=== PATIENT | male | born 1975 | race Caucasian/White ===

== ENCOUNTER 2016-02-27 10:50 | Emergency (ER) | payer SELFPAY ==
[2016-02-27] MEDS ORDERED: ONDANSETRON HCL IV 4 MG/2 ML VIAL IVP ONE (11:26)
[2016-02-27] MEDS ORDERED: MECLIZINE 25 MG TABLET PO ONE (11:26)
[2016-02-27] MEDS ORDERED: 0.9 % SODIUM CHLORIDE 1,000 ML BAG IV ONE (11:26)
--- NOTE | 2016-02-27 11:33 | Emergency Department Record ---
History of Present Illness - General Chief Complaint: Dizziness Stated Complaint: DIZZINESS Time Seen by Provider: 02/27/16 11:21 Source: Patient, Family Mode of Arrival: Ambulatory Limitations: No limitations - History of Present Illness Initial Comments: 40 yo male presents with dizziness and room spinning. The onset was about 7pm yesterday evening. He was sitting watching TV and turned his head and developed room spinning sensation. It improves if still but returns with movement or activity. No cough, cold, fever or recent symptoms. No vision changes or hearing changes. He finds it hard to focus when the room is spinning. No vomiting but he feels nauseated. No trauma. No history of the same. MD Complaint: Dizziness Onset/Timin -: Hour(s) Timing: Gradual onset Description: Lightheadedness, Nausea, Other History of Same: No History of Trauma: No Severity: Mild Improves With: Nothing Worsens With: Nothing Associated Symptoms: Malaise, Weakness - Nathaniel Coma Scale Eye Response: (4) Open spontaneously Motor Response: (6) Obeys commands Verbal Response: (5) Oriented [place] Total: 15 - Symptoms of Stroke Symptoms of stroke: Dizziness - Related Data Previous Rx's Medication Instructions Recorded Meclizine HCl [Antivert] 25 mg PO Q8H #20 tablet 02/27/16 Ondansetron [Zofran Odt] 4 mg PO Q8H #20 tab.rapdis 02/27/16 Promethazine HCl [Phenergan] 12.5 mg PO Q6H PRN #20 tablet 02/27/16 Allergies Allergy/AdvReac Type Severity Reaction Status Date / Time No Known Drug Allergies Allergy Verified 02/27/16 11:08 Travel Screening - Travel/Exposure Within Last 30 Days Have you traveled within the last 30 days?: No Review of Systems Constitutional: Denies: Chills, Fever, Malaise, Night sweats, Weakness Eyes: Denies: Eye discharge, Eye pain, Photophobia, Vision change ENT: Denies: Congestion, Ear pain, Throat pain Respiratory: Denies: Cough, Dyspnea, Hemoptysis, Stridor, Wheezes Cardiovascular: Denies: Chest pain, Palpitations, Syncope Endocrine: Denies: Fatigue Gastrointestinal: Reports: Nausea. Denies: Abdominal pain, Diarrhea, Vomiting Genitourinary: Denies: Hematuria, Urgency Musculoskeletal: Denies: Arthralgia, Back pain, Joint swelling, Myalgia, Neck pain Skin: Denies: Change in color, Rash Neurological: Reports: Abnormal gait (feels off balance walking), Vertigo. Denies: Headache, Numbness, Paresthesias, Seizure, Tingling, Tremors, Weakness Psychiatric: Reports: As per HPI. Denies: Anxiety, Auditory hallucinations, Depression, Homicidal thoughts, Suicidal thoughts, Visual hallucinations Hematological/Lymphatic: Reports: As per HPI. Denies: Anemia, Blood Clots, Easy bleeding, Easy bruising, Swollen glands Past Medical History - SOCIAL HISTORY Smoking Status: Current every day smoker Alcohol Use: None Drug Use: None - RESPIRATORY Hx Respiratory Disorders: No - CARDIOVASCULAR Hx Cardio Disorders: No - NEURO Hx Neuro Disorders: No - GI Hx GI Disorders: No - Hx Genitourinary Disorders: No - ENDOCRINE Hx Endocrine Disorders: No - MUSCULOSKELETAL Hx Musculoskeletal Disorders: No - PSYCH Hx Psych Problems: No - HEMATOLOGY/ONCOLOGY Hx Hematology/Oncology Disorders: No Family Medical History Any Significant Family History?: No Family Hx Comment (NOT TO BE USED IN PLACE OF ITEMS BELOW): unsure-pt was adopted Physical Exam - General General Appearance: Alert, Oriented x3, Cooperative, No acute distress Limitations: No limitations - Head Head exam: Atraumatic, Normocephalic, Normal inspection - Eye Eye exam: Normal appearance, PERRL, EOMI, Nystagmus (Noted with rightward gaze, none vertical, none leftward gaze). negative: Conjunctival injection, Periorbital swelling, Scleral icterus - ENT ENT exam: Normal exam, Mucous membranes moist, Normal external ear exam, Normal orophraynx, TM's normal bilaterally Ear exam: Normal external inspection. negative: External canal tenderness Nasal Exam: Normal inspection. negative: Discharge, Sinus tenderness Mouth exam: Normal external inspection, Tongue normal Teeth exam: Normal inspection. negative: Dental caries Throat exam: Normal inspection. negative: Tonsillar erythema, Tonsillar exudate - Neck Neck exam: Normal inspection, Full ROM. negative: Lymphadenopathy, Tenderness - Respiratory Respiratory exam: Normal lung sounds bilaterally. negative: Respiratory distress - Cardiovascular Cardiovascular Exam: Regular rate, Normal rhythm, Normal heart sounds Peripheral Pulses: 2+: Radial (R), Radial (L) - GI/Abdominal GI/Abdominal exam: Soft. negative: Guarding, Rebound, Rigid, Tenderness - Rectal Rectal exam: Deferred - exam: Deferred - Extremities Extremities exam: Normal inspection, Full ROM, Normal capillary refill. negative: Tenderness - Back Back exam: Reports: Normal inspection, Full ROM. Denies: Muscle spasm, Rash noted, Tenderness - Neurological Neurological exam: Alert, CN II-XII intact, Normal gait, Oriented X3, Reflexes normal, Other (No PND, normal ARIA, normal FTN). negative: Motor sensory deficit - Psychiatric Psychiatric exam: Normal affect, Normal mood - Skin Skin exam: Dry, Intact, Normal color, Warm Course Vital Signs 02/27/16 11:00 Temperature 97.6 F Pulse Rate 62 Respiratory 20 Rate Blood Pressure 119/82 Pulse Ox 99 - Reevaluation(s) Reevaluation #1: EKG 1126 NSR rate 53, intervals normal, axis normal, ST normal 02/27/16 11:33 Reevaluation #2: The labs were reviewed. No acute changes 02/27/16 12:20 Reevaluation #3: On recheck the patient is much improved. The nausea and spinning are resolved and he is hungry The CT scan was reviewed. He has a right sided arachnoid cyst. I ANGEL Lassiter of [facility]. He recommends his PCP get MRI and refer to him for follow up I ANGEL Constantino of the [facility] to ensure close follow up for a PCP 02/27/16 13:22 02/27/16 18:23 Reevaluation #4: At the time of discharge the patient has no dizziness, no headache, no vision changes. He ambulates freely around the ED without symptoms. We again discussed reasons to return to the ED immediately. Otherwise he will be called by the [facility] to assist in completing the outpatient work up 02/27/16 Medical Decision Making - Lab Data Result diagrams: 02/27/16 11:15 02/27/16 11:15 Disposition Disposition: Discharge Clinical Impression: Vertigo, Arachnoid cyst Disposition: Home, Self-Care Condition: (1) Good Instructions: Vertigo (ED) Additional Instructions: Return immediately if you have any return of dizziness or room spinning or any new concerns such as headaches, vision changes, weakness Call the Clinic tomorrow to schedule an appointment for close follow up You will need an outpatient MRI and refer for outpatient follow up with Neurosurgery at [facility] with Dr Lassiter Prescriptions: Meclizine HCl [Antivert] 25 mg PO Q8H #20 tablet Promethazine HCl [Phenergan] 12.5 mg PO Q6H PRN #20 tablet PRN Reason: Nausea Ondansetron [Zofran Odt] 4 mg PO Q8H #20 tab.samueldis Referrals: SUKHDEV LASSITER [] - NIRU GREER M.D. [MEDICAL DOCTOR] - Forms: Patient Portal Access Time of Disposition: 13:29
[2016-02-27 11:35] LABS: EOS % 0.6 % (0-6); GRAN % 72.9 % (47-80); HEMATOCRIT 37.2 % (42.0-52.0); HEMOGLOBIN 13.2 gm/dl (14.0-18.0); LYMPH % 20.4 % (16-45); MEAN CELL VOLUME 85.9 fl (81-97); MEAN CORPUSCULAR HGB CONC 35.5 g/dl (32-36); MEAN PLATELET VOLUME 9.2 fl (7.4-10.4); MONO % 6.1 % (0-9); PLATELET COUNT 202 K/uL (130-400); RED BLOOD COUNT 4.33 M/uL (4.40-5.70); RED CELL DISTRIBUTION WIDTH 13.1 % (11.5-14.5); WHITE BLOOD COUNT W/O DIFF 5.1 K/uL (4.2-12.2)
[2016-02-27 11:37] LABS: MEAN CORPUSCULAR HEMOGLOBIN 30.4 pg (27-33)
[2016-02-27 11:50] LABS: ALB/GLOB RATIO 1.7 (1.1-1.8); ALBUMIN 4.5 gm/dL (3.5-5.0); ALKALINE PHOSPHATASE 49 U/L (38-126); ALT/SGPT 31 U/L (21-72); ANION GAP 8.9 (7-16); AST/SGOT 16 U/L (17-59); BILIRUBIN,TOTAL 0.55 mg/dL (0.2-1.3); BLOOD UREA NITROGEN 10 mg/dL (9-20); CARBON DIOXIDE 26.1 mmol/L (22-30); CREATININE 0.7 mg/dL (0.66-1.25); EST GLOMERULAR FILTRATION RATE > 60 ml/min; GLUCOSE,RANDOM 95 mg/dL (70-110); TOTAL PROTEIN 7.1 gm/dL (6.3-8.2)
[2016-02-27 11:57] LABS: URINE APPEARANCE CLEAR; URINE BILIRUBIN NEGATIVE (NEGATIVE); URINE BLOOD NEGATIVE (NEGATIVE); URINE COLOR YELLOW; URINE GLUCOSE (UA) NEGATIVE (NEGATIVE); URINE KETONE NEGATIVE (NEGATIVE); URINE LEUKOCYTE ESTERASE NEGATIVE (NEGATIVE); URINE NITRITE NEGATIVE (NEGATIVE); URINE PROTEIN NEGATIVE (NEGATIVE); URINE UROBILINOGEN 0.2 E.U./dL (0.20 - 1.00)
[2016-02-27] MEDS ORDERED: ACETAMINOPHEN 325 MG TAB PO ONE (13:36)
--- NOTE | 2016-03-01 15:31 | CT SCAN REPORT ---
DATE: 02/27/2016. EXAM: HEAD CT. HISTORY: Headache and dizziness. TECHNIQUE: Non-contrast head CT was performed. COMPARISON: None. FINDINGS: There is a prominent cerebrospinal fluid space in the anterior right middle cranial fossa. This measures approximately 3.5 x 2.4 cm in size, probably representing an arachnoid cyst. The ventricles and subarachnoid spaces otherwise are unremarkable. There is no other mass or mass effect. No intra- or extra-axial hemorrhage is seen. No fracture or acute osseus abnormality identified. The visualized sinuses are clear. No CT evidence for large acute territorial infarct. IMPRESSION: 1. ARACHNOID CYST IN THE ANTERIOR RIGHT MIDDLE CRANIAL FOSSA. 2. HEAD CT IS OTHERWISE UNREMARKABLE WITH NO MASS, HEMORRHAGE, OR ACUTE INTRACRANIAL PROCESS. JOB NUMBER: [id number] MTDD
== END 2016-02-27 14:15 | disposition home or self-care (01) ==
LOC: ER 10:50
DX: G93.0 Cerebral cysts (principal); R42 Dizziness and giddiness; R11.0 Nausea; R51 Headache
CPT/HCPCS: 85025; 80053; 81003; 70450; 93005; 93010; J2405; 96361; 96374; 99284; J7030

== ENCOUNTER 2016-03-18 04:27 | Emergency (ER) | payer SELFPAY ==
--- NOTE | 2016-03-18 04:50 | Emergency Department Record ---
History of Present Illness - General Chief Complaint: Headache Migraine Stated Complaint: HEADACHE/PMH OF CYST ON BRAIN Time Seen by Provider: 03/18/16 04:44 Source: Patient, Family Mode of Arrival: Ambulatory Limitations: No limitations - History of Present Illness Initial Comments: 40 yo male presents to ED with a CC of a worsening headache and dizziness for the past 2.5 weeks since being seen in ED 02/27/16 when brain imaging revealed a large arachnoid cyst within the brain tissue. Patient reports that he underwent MRI imaging on 03/03/16 that further described the brain lesion. Patient reports that his headache symptoms have only worsened since being seen on 02/27/16, and patient has not been able to follow-up with a neurosurgeon since that time. Patient has been taking antivert and phenergan for his vertigo/ nausea symptoms and T#3 for his headache symptoms without improvement. Patient denies fevers, chills, or recent illness symptoms. Patient denies health problems at his baseline. MD Complaint: Headache Onset/Timin -: Week(s) Onset Description: Gradual Location: Frontal Severity: Severe Severity scale (1-10): >10 Quality: Other Consistency: Constant Improves With: Nothing Worsens With: Light, Noise Context: Other Associated Symptoms: Other Other Symptoms: Other Treatments Prior to Arrival: Prescription analgesic - Related Data Home Medications Medication Instructions Recorded Confirmed Last Taken Promethazine HCl [Phenergan] 12.5 mg PO ASDIR 03/18/16 03/18/16 Unknown Previous Rx's Medication Instructions Recorded Meclizine HCl [Antivert] 25 mg PO Q8H #20 tablet 02/27/16 Allergies Allergy/AdvReac Type Severity Reaction Status Date / Time No Known Drug Allergies Allergy Verified 02/27/16 11:08 Travel Screening - Travel/Exposure Within Last 30 Days Have you traveled within the last 30 days?: No - Travel/Exposure Within Last Year Have you traveled outside the [place] in the last year?: No - Additonal Travel Details Have you been exposed to anyone with a communicable illness?: No - Travel Symptoms Symptom Screening: None Review of Systems Constitutional: Denies: Chills, Fever, Malaise, Night sweats Eyes: Denies: Eye discharge, Eye pain ENT: Denies: Congestion, Ear pain Respiratory: Denies: Cough, Dyspnea Cardiovascular: Denies: Chest pain, Dyspnea on exertion Endocrine: Denies: Fatigue, Heat or cold intolerance Gastrointestinal: Denies: Abdominal pain, Nausea, Vomiting Genitourinary: Denies: Incontinence, Retention Musculoskeletal: Denies: Arthralgia, Back pain, Gout, Joint swelling Skin: Denies: Bruising, Change in color Neurological: Reports: Headache. Denies: Abnormal gait, Confusion, Seizure Psychiatric: Denies: Anxiety Hematological/Lymphatic: Denies: Anemia, Blood Clots Past Medical History - SOCIAL HISTORY Smoking Status: Current every day smoker Alcohol Use: None Drug Use: None - RESPIRATORY Hx Respiratory Disorders: No - CARDIOVASCULAR Hx Cardio Disorders: No - NEURO Hx Neuro Disorders: No - GI Hx GI Disorders: No - Hx Genitourinary Disorders: No - ENDOCRINE Hx Endocrine Disorders: No - MUSCULOSKELETAL Hx Musculoskeletal Disorders: No - PSYCH Hx Psych Problems: No - HEMATOLOGY/ONCOLOGY Hx Hematology/Oncology Disorders: No Family Medical History Any Significant Family History?: No Family Hx Comment (NOT TO BE USED IN PLACE OF ITEMS BELOW): unsure-pt was adopted Physical Exam - General General Appearance: Alert, Oriented x3, Cooperative, Moderate distress (patient appears to be in moderate to severe pain on examination) Limitations: No limitations - Head Head exam: Atraumatic, Normocephalic, Normal inspection Head exam detail: negative: Abrasion, Contusion, Oconnell's sign, General tenderness, Hematoma, Laceration - Eye Eye exam: Normal appearance, Other (Pupils are 3-4 mm bilaterally, reactive). negative: Conjunctival injection, Periorbital swelling, Periorbital tenderness, Scleral icterus - ENT Ear exam: negative: Auricular hematoma, Auricular trauma Nasal Exam: negative: Active bleeding, Discharge, Dried blood, Foreign body Mouth exam: negative: Drooling, Laceration, Muffled voice, Tongue elevation - Neck Neck exam: Normal inspection. negative: Meningismus, Tenderness - Respiratory Respiratory exam: Normal lung sounds bilaterally. negative: Respiratory distress, Rhonchi, Stridor, Wheezes - Cardiovascular Cardiovascular Exam: Regular rate, Normal rhythm, Normal heart sounds - GI/Abdominal GI/Abdominal exam: Soft. negative: Pulsatile mass, Rebound, Rigid, Tenderness - Rectal Rectal exam: Deferred - exam: Deferred - Extremities Extremities exam: Normal inspection. negative: Calf tenderness, Pedal edema, Tenderness - Back Back exam: Reports: Normal inspection. Denies: CVA tenderness (R), CVA tenderness (L), Paraspinal tenderness - Neurological Neurological exam: Alert, Normal gait, Oriented X3 - Psychiatric Psychiatric exam: Normal affect, Normal mood - Skin Skin exam: Normal color. negative: Abrasion Type of lesion: negative: abrasion Course Vital Signs 03/18/16 04:31 Temperature 97.5 F L Pulse Rate 97 H Respiratory 20 Rate Blood Pressure 127/96 Pulse Ox 97 - Reevaluation(s) Reevaluation #1: 03/18/16 04:50 MRI Brain 03/03/16: 4.0 x 2.6 cm mass anterior right cranial fossa c/w arachnoid cyst. Reevaluation #2: 03/18/16 04:57 After discussion with the patient and his significant other, will initiate transfer for neuro-surgical evaluation. Analgesia ordered for pain symptoms. Per patient request, [facility]yn 1-call contacted for consultation. Reevaluation #3: 03/18/16 05:10 Case was discussed with Dr. Hansen, will accept transfer for admission. Disposition Disposition: Transfer Clinical Impression: Arachnoid cyst Headache Qualifiers: Headache type: unspecified Headache chronicity pattern: acute headache Intractability: intractable Qualified Code(s): R51 - Headache Disposition: Acute Care Hospital Transfer Transfer To: [facility] Reason For Transfer: Neurosurgical evaluation Accepting Physician: Jade Time Discussed w/Accepting Physician: 05:12 Condition: (2) Stable Instructions: Acute Headache (ED) Forms: Patient Portal Access Time of Disposition: 05:13
[2016-03-18] MEDS: MORPHINE SULFATE 5 MG/ML PFS IVP ONE (05:05)
[2016-03-18] MEDS: ONDANSETRON HCL IV 4 MG/2 ML VIAL IVP ONE (05:05)
[2016-03-18] MEDS: 0.9 % SODIUM CHLORIDE 1000ML 1,000 ML IV SCH (05:06)
[2016-03-18 06:06] LABS: BASO % 0.2 % (0-6); EOS % 0.9 % (0-6); GRAN % 70.1 % (47-80); HEMATOCRIT 39.2 % (42.0-52.0); LYMPH % 20.8 % (16-45); MEAN CELL VOLUME 86.3 fl (81-97); MEAN CORPUSCULAR HEMOGLOBIN 30.8 pg (27-33); MEAN CORPUSCULAR HGB CONC 35.7 g/dl (32-36); MEAN PLATELET VOLUME 9.7 fl (7.4-10.4); PLATELET COUNT 218 K/uL (130-400); RED BLOOD COUNT 4.54 M/uL (4.40-5.70); RED CELL DISTRIBUTION WIDTH 12.6 % (11.5-14.5); WHITE BLOOD COUNT W/O DIFF 6.5 K/uL (4.2-12.2)
[2016-03-18 06:08] LABS: INR 1.03; PROTHROMBIN TIME (PATIENT) 11.6 SECONDS (9.5-12.1)
[2016-03-18 06:21] LABS: ALB/GLOB RATIO 1.7 (1.1-1.8); ALBUMIN 4.5 gm/dL (3.5-5.0); ALKALINE PHOSPHATASE 55 U/L (38-126); ALT/SGPT 34 U/L (21-72); ANION GAP 13.4 (7-16); AST/SGOT 18 U/L (17-59); BILIRUBIN,TOTAL 1.08 mg/dL (0.2-1.3); BLOOD UREA NITROGEN 12 mg/dL (9-20); CARBON DIOXIDE 23.6 mmol/L (22-30); CREATININE 0.7 mg/dL (0.66-1.25); EST GLOMERULAR FILTRATION RATE > 60 ml/min; GLUCOSE,RANDOM 109 mg/dL (70-110); TOTAL PROTEIN 7.2 gm/dL (6.3-8.2)
== END 2016-03-18 07:06 | disposition short-term general hospital (02) ==
LOC: ER 04:27
DX: G93.0 Cerebral cysts (principal); F17.210 Nicotine dependence, cigarettes, uncomplicated; R42 Dizziness and giddiness
CPT/HCPCS: 99285 ×2; 94760; 96374; 96375; 85025; 85610; 80053; J2405; J2270; J7030

== ENCOUNTER 2016-04-26 10:59 | Emergency (ER) | payer SELFPAY ==
--- NOTE | 2016-04-26 11:06 | Emergency Department Record ---
History of Present Illness - General Chief complaint: Dental Stated complaint: SWOLLEN GUMS Time Seen by Provider: 04/26/16 11:05 Source: Patient Mode of Arrival: Ambulatory Limitations: No limitations - History of Present Illness Initial comments: The patient is here due to dental pain for one day. The pain is over the front lover teeth and he feels they are loose. There is no specific swelling or fever present. The patient is unable to see a dentist. MD complaint: Tooth pain Onset/Timin -: Days(s) Location: Other Severity: Severe Severity scale (1-10): 9 Quality: Aching, Sharp Consistency: Constant Improves with: None Worsens with: None Associated Symptoms: Other - Related Data Home Medications Medication Instructions Recorded Confirmed Last Taken Promethazine HCl [Phenergan] 12.5 mg PO ASDIR 03/18/16 04/26/16 Unknown Previous Rx's Medication Instructions Recorded Clindamycin HCl [Cleocin HCl] 300 mg PO QID #28 capsule 04/26/16 Naproxen [Naprosyn] 500 mg PO BID #14 tablet. 04/26/16 Allergies Allergy/AdvReac Type Severity Reaction Status Date / Time No Known Drug Allergies Allergy Unverified 03/22/16 14:43 Travel Screening - Travel/Exposure Within Last 30 Days Have you traveled within the last 30 days?: No Review of Systems Constitutional: Denies: Chills, Fever Eyes: Denies: Eye discharge ENT: Reports: Dental pain. Denies: Congestion Respiratory: Denies: Cough, Dyspnea Past Medical History - SOCIAL HISTORY Smoking Status: Current every day smoker Alcohol Use: None Drug Use: None - RESPIRATORY Hx Respiratory Disorders: No - CARDIOVASCULAR Hx Cardio Disorders: No - NEURO Hx Neuro Disorders: No - GI Hx GI Disorders: No - Hx Genitourinary Disorders: No - ENDOCRINE Hx Endocrine Disorders: No - MUSCULOSKELETAL Hx Musculoskeletal Disorders: No - PSYCH Hx Psych Problems: No - HEMATOLOGY/ONCOLOGY Hx Hematology/Oncology Disorders: No Family Medical History Any Significant Family History?: No Family Hx Comment (NOT TO BE USED IN PLACE OF ITEMS BELOW): unsure-pt was adopted Physical Exam - General General Appearance: Alert, Oriented x3, Cooperative, No acute distress - Head Head exam: Atraumatic, Normocephalic, Normal inspection - Eye Eye exam: Normal appearance, PERRL - ENT Teeth exam: Normal inspection, Dental tenderness # (07 and 26.), Other (There is no gum line swelling and no edema or fullness under the tongue.) Throat exam: Normal inspection. negative: Tonsillar erythema, Tonsillomegaly, Tonsillar exudate - Neck Neck exam: Normal inspection, Full ROM. negative: Tenderness Course Vital Signs 04/26/16 11:03 Pulse Rate [ 76 Pulse Ox Probe] Respiratory 16 Rate Blood Pressure 129/90 [Left Arm] Pulse Ox 100 - Reevaluation(s) Reevaluation #1: I did explain to the patient that we will place him on pain medicines and Abx's and will refer him to the dental clinic in [place]. 04/26/16 11:11 Disposition Disposition: Discharge Clinical Impression: Toothache Disposition: Home, Self-Care Condition: (1) Good Instructions: Toothache (ED) Additional Instructions: Please take the clindamycin and Naprosyn as directed and please call the [place] clinic today for an appointment. Prescriptions: Clindamycin HCl [Cleocin HCl] 300 mg PO QID #28 capsule Naproxen [Naprosyn] 500 mg PO BID #14 tablet.dr Forms: Patient Portal Access Time of Disposition: 11:13
[2016-04-26] MEDS ORDERED: NAPROXEN 250 MG TABLET PO ONE (11:08)
[2016-04-26] MEDS ORDERED: CLINDAMYCIN 150 MG CAP PO ONE (11:09)
== END 2016-04-26 11:23 | disposition home or self-care (01) ==
LOC: ER 10:59
DX: K08.89 Other specified disorders of teeth and supporting structures (principal)
CPT/HCPCS: 99282

== ENCOUNTER 2017-03-02 13:05 | Emergency (ER) | payer MEDICAID | END 2017-03-02 13:39 | disposition left against medical advice (07) | LOC: ER 13:05 | DX: Z53.20 Procedure and treatment not carried out because of patient's decision for unspecified reasons (principal) ==

== ENCOUNTER 2017-03-09 13:29 | Emergency (ER) | payer MEDICAID ==
--- NOTE | 2017-03-09 13:56 | Emergency Department Record ---
History of Present Illness - General Chief complaint: Flu Like Symptoms Stated complaint: COUGH, MOODY, SORE THROAT Time Seen by Provider: 03/09/17 13:47 Source: Patient Mode of Arrival: Ambulatory Limitations: No limitations - History of Present Illness Initial comments: The patient is here due to a 9 day hx of cough, congestion, ST, mild hoarse voice and intermittent nausea. He did vomit earlier but denies any SOB, GINNY, MOODY or neck pain. MD Complaint: Generalized weakness Onset/Timin -: Days(s) Location: Generalized Severity: Moderate Severity scale (1-10): 7 Quality: Aching Consistency: Constant - Nathaniel Coma Scale Eye Response: (4) Open spontaneously Motor Response: (6) Obeys commands Verbal Response: (5) Oriented Nathaniel Total: 15 - Related Data Home Medications Medication Instructions Recorded Confirmed Last Taken Hydroxyzine HCl 25 mg PO TID PRN 03/09/17 03/09/17 1 Day Ago ~03/08/17 Olanzapine [Zyprexa] 20 mg PO QPM 03/09/17 03/09/17 1 Day Ago ~03/08/17 Trazodone HCl 50 mg PO QHS 03/09/17 03/09/17 1 Day Ago ~03/08/17 Previous Rx's Medication Instructions Recorded Doxycycline Monohydrate [Mondoxyne 100 mg PO BID #14 capsule 03/09/17 Nl] Prednisone [Prednisone 20Mg] 40 mg PO DAILY #10 tab 03/09/17 Allergies Allergy/AdvReac Type Severity Reaction Status Date / Time No Known Drug Allergies Allergy Verified 03/09/17 13:43 Travel Screening - Travel/Exposure Within Last 30 Days Have you traveled within the last 30 days?: No - Travel/Exposure Within Last Year Have you traveled outside the [place] in the last year?: No - Additonal Travel Details Have you been exposed to anyone with a communicable illness?: No - Travel Symptoms Symptom Screening: None Review of Systems Constitutional: Reports: Chills, Fever, Malaise Eyes: Denies: Eye discharge ENT: Reports: Congestion Respiratory: Reports: Cough. Denies: Dyspnea Past Medical History - SOCIAL HISTORY Smoking Status: Current every day smoker Alcohol Use: None Drug Use Detail:: Marijuana - RESPIRATORY Hx Respiratory Disorders: No - CARDIOVASCULAR Hx Cardio Disorders: No - NEURO Hx Neuro Disorders: Yes Comment:: cyst on his brain, monitoring - GI Hx GI Disorders: No - Hx Genitourinary Disorders: No - ENDOCRINE Hx Endocrine Disorders: No - MUSCULOSKELETAL Hx Musculoskeletal Disorders: No - PSYCH Hx Depression: Yes Comment:: bipolar - HEMATOLOGY/ONCOLOGY Hx Hematology/Oncology Disorders: No Family Medical History Any Significant Family History?: Yes Family Hx Comment (NOT TO BE USED IN PLACE OF ITEMS BELOW): unsure-pt was adopted Physical Exam - General General Appearance: Alert, Oriented x3, Cooperative, No acute distress - Head Head exam: Atraumatic, Normocephalic, Normal inspection - Eye Eye exam: Normal appearance, PERRL - ENT ENT exam: TM's normal bilaterally. negative: Normal exam Throat exam: Tonsillar erythema. negative: Normal inspection, Tonsillomegaly, Tonsillar exudate - Neck Neck exam: Normal inspection, Full ROM. negative: Lymphadenopathy, Meningismus , Tenderness - Respiratory Respiratory exam: Normal lung sounds bilaterally. negative: Respiratory distress - Cardiovascular Cardiovascular Exam: Regular rate, Normal rhythm, Normal heart sounds - GI/Abdominal GI/Abdominal exam: Soft, Normal bowel sounds. negative: Tenderness - Extremities Extremities exam: Normal inspection, Full ROM, Normal capillary refill. negative: Tenderness Course Vital Signs 03/09/17 13:37 Temperature 98.1 F Pulse Rate 79 Respiratory 15 Rate Blood Pressure 112/72 Pulse Ox 97 - Reevaluation(s) Reevaluation #1: I did explain to the patient that his tests are neg. We will treat him with Doxycycline and Prednisone and have him F/U with his PCP next week. 03/09/17 14:28 Medical Decision Making - Data Complexity MDM Data: Labs Ordered and/or Reviewed (Flu and Strep: Neg.), X-Ray Ordered and/ or Reviewed - Radiology Data Radiology results: Report reviewed (CXR: Neg.) Disposition Disposition: Discharge Clinical Impression: Upper respiratory infection Qualifiers: URI type: unspecified URI Qualified Code(s): J06.9 - Acute upper respiratory infection, unspecified Disposition: Home, Self-Care Condition: (2) Stable Instructions: Upper Respiratory Infection (ED) Additional Instructions: Please use Tylenol and Motrin for body aches and drink plenty of fluids. Please take the Doxycycline and Prednisone as directed and see your PCP for recheck next week. Return to the ER for any worsening symptoms. Prescriptions: Doxycycline Monohydrate [Mondoxyne Nl] 100 mg PO BID #14 capsule Prednisone [Prednisone 20Mg] 40 mg PO DAILY #10 tab Forms: Patient Portal Access Time of Disposition: 14:31 Quality - Quality Measures Quality Measures: N/A - Blood Pressure Screening View Details: Yes Does Patient Have Any of the Following: No Blood Pressure Classification: Normal BP Reading Systolic Measurement: 112 Diastolic Measurement: 72 Screening for High Blood Pressure: < Normal BP, F/U Not Required > [G8783]
[2017-03-09] MEDS ORDERED: ACETAMINOPHEN 325 MG TAB PO ONE (14:04)
[2017-03-09 14:21] LABS: INFLUENZA A NEGATIVE (NEGATIVE); INFLUENZA B NEGATIVE (NEGATIVE)
--- NOTE | 2017-03-10 19:27 | RADIOLOGY REPORT ---
EXAM: CHEST 2 VIEWS HISTORY: COUGH FOR NINE DAYS. TECHNIQUE: Upright PA and lateral views of the chest. COMPARISON: None. FINDINGS: The heart is not enlarged and the pulmonary vasculature is nondilated. The lungs and pleural spaces are clear. Mild degenerative changes are scattered within the visualized spine. IMPRESSION: NO RADIOGRAPHIC EVIDENCE OF ACUTE CARDIOPULMONARY DISEASE. JOB NUMBER: [id number] MTDD
== END 2017-03-09 14:40 | disposition home or self-care (01) ==
LOC: ER 13:29
DX: J06.9 Acute upper respiratory infection, unspecified (principal); R05 Cough; R53.1 Weakness; R11.0 Nausea; F17.210 Nicotine dependence, cigarettes, uncomplicated
CPT/HCPCS: 71046; 87400; 87880; 99283; 99284

== ENCOUNTER 2017-04-13 00:10 | Emergency (ER) | payer MEDICAID ==
--- NOTE | 2017-04-13 00:27 | Emergency Department Record ---
History of Present Illness - General Chief complaint: Male Urogenital Problem Stated complaint: TESTICLE PAIN Time Seen by Provider: 04/13/17 00:22 Source: Patient Mode of Arrival: Ambulatory Limitations: No limitations - History of Present Illness Initial comments: 41 yo male presents to ED for evaluation of left testicular pain and swelling that began approximately 8 hours ago. Patient denies injury or trauma, denies fevers, chills, or dysuria symptoms. Patient reports that his symptoms came on at rest, denies health problems at his baseline. MD Complaint: Testicle pain, Testicle swelling Onset/Timin -: Hour(s) Radiation: None Severity: Mild Severity scale (1-10): 4 Quality: Aching Consistency: Constant Improves with: None Worsens with: None Reports: Denies other symptoms - Related Data Previous Rx's Medication Instructions Recorded Doxycycline Monohydrate [Mondoxyne 100 mg PO BID #14 capsule 03/09/17 Nl] Allergies Allergy/AdvReac Type Severity Reaction Status Date / Time No Known Drug Allergies Allergy Verified 04/13/17 00:16 Travel Screening - Travel/Exposure Within Last 30 Days Have you traveled within the last 30 days?: No - Travel/Exposure Within Last Year Have you traveled outside the [place] in the last year?: No - Additonal Travel Details Have you been exposed to anyone with a communicable illness?: No - Travel Symptoms Symptom Screening: None Review of Systems Constitutional: Denies: Chills, Fever, Malaise, Night sweats Eyes: Denies: Eye discharge, Eye pain ENT: Denies: Congestion, Ear pain, Epistaxis Respiratory: Denies: Cough, Dyspnea Cardiovascular: Denies: Chest pain, Dyspnea on exertion Endocrine: Denies: Fatigue, Heat or cold intolerance Gastrointestinal: Denies: Abdominal pain, Nausea, Vomiting Genitourinary: Reports: Testicular pain. 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, monitoring - GI Hx GI Disorders: No - Hx Genitourinary Disorders: No - ENDOCRINE Hx Endocrine Disorders: No - MUSCULOSKELETAL Hx Musculoskeletal Disorders: No - PSYCH Hx Psych Problems: No Hx Depression: Yes Comment:: bipolar - HEMATOLOGY/ONCOLOGY Hx Hematology/Oncology Disorders: No Family Medical History Any Significant Family History?: Yes Family Hx Comment (NOT TO BE USED IN PLACE OF ITEMS BELOW): unsure-pt was adopted Physical Exam - General General Appearance: Alert, Oriented x3, Cooperative, Moderate distress Limitations: No limitations - Head Head exam: Atraumatic, Normocephalic, Normal inspection Head exam detail: negative: Abrasion, Contusion, Oconnell's sign, General tenderness, Hematoma, Laceration - Eye Eye exam: Normal appearance. negative: Conjunctival injection, Periorbital swelling, Periorbital tenderness, Scleral icterus - ENT Ear exam: negative: Auricular hematoma, Auricular trauma Nasal Exam: negative: Active bleeding, Discharge, Dried blood, Foreign body Mouth exam: negative: Drooling, Laceration, Tongue elevation - Neck Neck exam: Normal inspection. negative: Meningismus, Tenderness - Respiratory Respiratory exam: Normal lung sounds bilaterally. negative: Rales, Respiratory distress, Rhonchi, Stridor - Cardiovascular Cardiovascular Exam: Regular rate, Normal rhythm, Normal heart sounds - GI/Abdominal GI/Abdominal exam: Soft. negative: Rebound, Rigid, Tenderness - Rectal Rectal exam: Deferred - exam: Normal inspection, Scrotal swelling, Testicular tenderness, Other ( Scrotal fullness left, elevation of the left testicle on examination, mild- moderate TTP on exam) - Extremities Extremities exam: Normal inspection. negative: Pedal edema, Tenderness - Back Back exam: Denies: CVA tenderness (R), CVA tenderness (L) - Neurological Neurological exam: Alert, Normal gait, Oriented X3 - Psychiatric Psychiatric exam: Normal affect, Normal mood - Skin Skin exam: Normal color. negative: Abrasion Type of lesion: negative: abrasion Course Vital Signs 04/13/17 00:12 Temperature 97.9 F Pulse Rate 90 Respiratory 20 Rate Blood Pressure 142/100 Pulse Ox 98 - Reevaluation(s) Reevaluation #1: 04/13/17 00:26 HF [facility] contacted for transfer to undergo US of the scrotum, case was discussed with Dr. Barrett, will accept transfer by private car to go directly to the ED for evaluation. Patient and his SO verbalize the importance of going directly to the ED to exclude testicular torsion. 04/13/17 00:32 Disposition Disposition: Transfer Clinical Impression: Testicular pain, left Disposition: Acute Care Hospital Transfer Transfer To: [facility] Reason For Transfer: US testicle Accepting Physician: Nena Time Discussed w/Accepting Physician: 00:25 Condition: (2) Stable Forms: Patient Portal Access Time of Disposition: 00:25 Quality - Quality Measures Quality Measures: N/A - Blood Pressure Screening Does Patient Have Any of the Following: No Blood Pressure Classification: Hypertensive Reading Systolic Measurement: 142 Diastolic Measurement: 100 Screening for High Blood Pressure: < First Hypertensive BP, F/U Documented > [ [id number]] First Hypertensive Follow-up Interventions: Referral to alternative/primary care provider.
== END 2017-04-13 00:37 | disposition short-term general hospital (02) ==
LOC: ER 00:10
DX: N50.812 Left testicular pain (principal); F17.210 Nicotine dependence, cigarettes, uncomplicated
CPT/HCPCS: 99283